=== PATIENT | female | born 1985 | race Hispanic/Latino ===

== ENCOUNTER 2017-04-10 23:30 | Observation (INO) | payer BC, OTHER ==
[~2017-04-10] VITALS: Ht 152.4 cm; Wt 74.4 kg
[2017-04-11 00:02] LABS: APPEARANCE,URINE Clear (CLEAR); BILIRUBIN,URINE Negative (NEGATIVE); COLOR,URINE Yellow (YELLOW); GLUCOSE, URINE (UA) Negative (NEGATIVE); KETONES,URINE Negative (NEGATIVE); LEUKOCYTE ESTERASE ,URINE Negative (NEGATIVE); NITRATE,URINE Negative (NEGATIVE); OCCULT BLOOD,URINE Negative (NEGATIVE); PROTEIN,URINE Negative (NEGATIVE); UROBILINOGEN,URINE 0.2 mg/dL (0.2-1.0)
[2017-04-11 00:16] VITALS: BP 110/50
[2017-04-11] MEDS ORDERED: IRON-23 PO (00:19)
[2017-04-11] MEDS ORDERED: PREN1TAB89 PO (00:19)
[2017-04-11] MEDS ORDERED: LACTATED RINGERS 1000ML IV ONE (00:30)
[2017-04-11] MEDS ORDERED: TERBUTALINE SULFATE VIAL 1MG/ML SQ SCH (00:30)
[2017-04-11] MEDS ORDERED: LACTATED RINGERS 1000ML 1,000 ML IV SCH (06:30)
== END 2017-04-11 08:30 | disposition home or self-care (01) ==
LOC: EDH 23:30 → LDH 23:31
PROVIDERS: ADMIT Obstetrics & Gynecology; ATTEND Obstetrics & Gynecology
DX: O62.9 Abnormality of forces of labor, unspecified (principal); Z3A.37 37 weeks gestation of pregnancy
CPT/HCPCS: 81003; 96360; 96361; 99285; G0378 ×9

== ENCOUNTER 2017-04-19 16:35 | Inpatient (IN) | payer BC ==
[~2017-04-19 16:35] MED LIST: IRON-23 PO; PREN1TAB89 PO
[2017-04-19] MEDS ORDERED: LACTATED RINGERS 1000ML 1,000 ML IV PRN (17:18)
[2017-04-19] MEDS ORDERED: NALOXONE HCL 0.4 MG/1 ML ML IV PRN (17:30)
[2017-04-19] MEDS ORDERED: LACTATED RINGERS 500 ML 500 ML IV PRN (17:30)
[2017-04-19] MEDS ORDERED: EPHEDRINE SULFATE 50 MG/ML AMPULE IVP PRN (17:30)
[2017-04-19 17:36] LABS: HEMATOCRIT 36.2 % (36-48); MEAN CORPUSCULAR HEMOGLOBIN 29.3 pg (27.0-33.0); MEAN CORPUSCULAR HGB CONC 34.4 g/dL (32.0-36.0); MEAN CORPUSCULAR VOLUME 85.2 fL (79-99); NUCLEATED RED BLOOD CELLS 0.1 % (0.0-0.19); PLATELET COUNT (AUTO) 128 K/uL (130-400); RED BLOOD CELL COUNT(AUTO) 4.25 MIL/uL (4.00-5.50); RED CELL DISTRIBUTION WIDTH 16.9 % (11.0-15.5); WHITE BLOOD COUNT (AUTO) 11.5 K/uL (4.8-10.8)
[2017-04-19] MEDS ORDERED: LACTATED RINGERS 1000ML 1,000 ML IV ONE ×2 (18:38→22:35)
[2017-04-19] MEDS ORDERED: OXYTOCIN 10 USP UNITS/ML ONE ×2 (18:39→22:35)
[2017-04-19] MEDS ORDERED: OXYTOCIN-LR 20 UNITS/1000 ML 1,000 ML IV SCH (21:00)
[2017-04-19] MEDS ORDERED: ACETAMINOPHEN-CODEINE 300/30MG TAB PO PRN (21:00)
[2017-04-19] MEDS: DOCUSATE SODIUM 100 MG CAP PO SCH (21:00)
[2017-04-19] MEDS ORDERED: WITCH HAZEL 1 PAD TP PRN (21:00)
[2017-04-19] MEDS ORDERED: ACETAMINOPHEN 325 MG TAB PO PRN (21:00)
[2017-04-19] MEDS ORDERED: DIPH,PERTUSS(ACELL),TET VAC/PF 0.5 ML VIAL IM PRN (21:00)
[2017-04-19] MEDS ORDERED: LANOLIN 30GM OINTMENT TP PRN (21:00)
[2017-04-19] MEDS ORDERED: BENZOCAINE/LANOLIN/ALOE VERA 60 ML AEROSOL TP PRN (21:00)
[2017-04-19] MEDS ORDERED: LANOLIN 30GM OINTMENT TP ONE (21:24)
[2017-04-19] MEDS ORDERED: BENZOCAINE/LANOLIN/ALOE VERA 60 ML AEROSOL TP ONE (21:24)
[2017-04-19] MEDS ORDERED: DOCUSATE SODIUM 100 MG CAP PO ONE (21:25)
[2017-04-19] MEDS ORDERED: LIDOCAINE HCL 1% 20 ML VIAL ONE (22:04)
[2017-04-19 23:04] VITALS: BP 104/58
[2017-04-19] MEDS: IBUPROFEN 800 MG TAB PO PRN (23:21)
[2017-04-19 23:42] VITALS: BP 99/57
[2017-04-20 03:23] VITALS: BP 105/68
[2017-04-20 07:57] VITALS: BP 105/52
[2017-04-20] MEDS: DOCUSATE SODIUM 100 MG CAP PO SCH ×2 (10:19→21:20)
[2017-04-20] MEDS: IBUPROFEN 800 MG TAB PO PRN ×2 (10:20→20:08)
[2017-04-20 11:37] VITALS: BP 98/50
[2017-04-20 15:40] VITALS: BP 95/57
[2017-04-20 19:45] VITALS: BP 108/60
[2017-04-20 23:05] VITALS: BP 95/54
[2017-04-21 03:18] VITALS: BP 98/48
[2017-04-21 07:32] VITALS: BP 112/78
[2017-04-21 08:23] LABS: HEPATITIS Bs ANTIGEN SCREEN P Negative (Negative)
[2017-04-21] MEDS: DOCUSATE SODIUM 100 MG CAP PO SCH (09:38)
[2017-04-21] MEDS: IBUPROFEN 800 MG TAB PO PRN (09:47)
[2017-04-21 11:27] VITALS: BP 98/65
== END 2017-04-21 13:35 | disposition home or self-care (01) | DRG 775 ==
LOC: OBSVTOIN 16:35 → LDH 16:35 → WSH 23:00
PROVIDERS: ADMIT Obstetrics & Gynecology; ATTEND Obstetrics & Gynecology
PROC: 0KQM0ZZ Repair Perineum Muscle, Open Approach (ICD-10-PCS; principal; 2017-04-19)
PROC: 10E0XZZ Delivery of Products of Conception, External Approach (ICD-10-PCS; 2017-04-19)
PROC: 10907ZC Drainage of Amniotic Fluid, Therapeutic from Products of Conception, Via Natural or Artificial Opening (ICD-10-PCS; 2017-04-19)
PROC: 3E0234Z Introduction of Serum, Toxoid and Vaccine into Muscle, Percutaneous Approach (ICD-10-PCS; 2017-04-19)
DX: O70.1 Second degree perineal laceration during delivery (principal); Z37.0 Single live birth; Z23 Encounter for immunization; Z3A.38 38 weeks gestation of pregnancy
CPT/HCPCS: 36415; 85027; 86592; 86850; 86900; 86901; 87340; 90715; J2590; J7120